=== PATIENT | male | born 1960 | race Caucasian/White ===

== ENCOUNTER → 2018-11-02 | Outpatient (CLI) | payer BC ==
[2018-11-04 14:36] LABS: PSA TOTAL 2.6 ng/mL (0.0-4.0)
== END ==
LOC: M WUC 17:31
PROVIDERS: ATTEND Urology
DX: R97.20 Elevated prostate specific antigen [PSA] (principal)

== ENCOUNTER → 2020-05-29 | Outpatient (CLI) | payer BC | LOC: M WUC 16:56 | PROVIDERS: ATTEND Urology | DX: N52.01 Erectile dysfunction due to arterial insufficiency (principal) ==

== ENCOUNTER → 2022-08-05 | Outpatient (CLI) | payer BC | LOC: M LAB 17:13 | PROVIDERS: ATTEND Urology | DX: R97.20 Elevated prostate specific antigen [PSA] (principal) ==